=== PATIENT | male | born 1965 | race Caucasian/White ===

== ENCOUNTER 2017-04-03 08:46 | Emergency (ER) | payer BC ==
[2017-04-03 09:44] VITALS: BP 135/87
--- NOTE | 2017-04-03 10:01 | UC ---
Laceration HPI - HPI Summary HPI Summary: 51 yo male 19-20 hours s/p laceration to his left thumb occurred on a can lid he is right handed pretty sure his Td is UTP - History Of Current Complaint Chief Complaint: UCLaceration Stated Complaint: LEFT THUMB LAC Time Seen by Provider: 04/03/17 09:51 Hx Obtained From: Patient, Family/Yeast Pusher - mom Laceration Location: Finger Mechanism Of Injury: Sharp Trauma Onset/Duration: Sudden Onset Severity: Mild Pain Intensity: 2 Pain Scale Used: 0-10 Numeric Aggravating Factors: Other: - touch - Allergies/Home Medications Allergies/Adverse Reactions: Allergies Allergy/AdvReac Type Severity Reaction Status Date / Time No Known Allergies Allergy Verified 04/03/17 09:36 Home Medications: Home Medications Oxcarbazepine [Trileptal 600 MG tab] 600 mg BID 04/03/17 [History Confirmed ] lamoTRIgine TAB(*) [Lamictal TAB(*)] 50 mg DAILY 04/03/17 [History Confirmed ] PMH/Surg Hx/FS Hx/Imm Hx Previously Healthy: Yes Neurological History: Seizures - Surgical History Surgical History: Yes Surgery Procedure, Year, and Place: TONSILS, APPENDIX - Family History Known Family History: Positive: Hypertension - Social History Alcohol Use: Occasionally Substance Use Type: None Smoking Status (MU): Never Smoked Tobacco - Immunization History Most Recent Influenza Vaccination: 2017 Review of Systems Constitutional: Negative Skin: Negative Eyes: Negative ENT: Negative Respiratory: Negative Cardiovascular: Negative Gastrointestinal: Negative Genitourinary: Negative Motor: Negative Neurovascular: Negative Musculoskeletal: Negative Neurological: Negative Psychological: Negative Is Patient Immunocompromised?: No All Other Systems Reviewed And Are Negative: Yes Physical Exam Triage Information Reviewed: Yes Appearance: Well-Appearing, No Pain Distress, Well-Nourished Vital Signs: Initial Vital Signs Temp 98.2 F 04/03/17 09:37 Pulse 93 04/03/17 09:37 Resp 16 04/03/17 09:37 BP 135/87 04/03/17 09:37 Pulse Ox 96 04/03/17 09:37 Vital Signs Reviewed: Yes Eyes: Positive: Conjunctiva Clear ENT: Positive: Hearing grossly normal. Negative: Nasal congestion, Nasal drainage, Trismus, Muffled voice, Hoarse voice Neck: Positive: Supple Respiratory: Positive: Lungs clear, Normal breath sounds, No respiratory distress, No accessory muscle use Cardiovascular: Positive: RRR, No Murmur Musculoskeletal: Positive: ROM Intact, No Edema Neurological: Positive: Alert Psychological Exam: Normal Skin Exam: Other - laceration to left thumb Laceration Course/Dx - Course/Dx Course Of Treatment: I explained that we could not repair his laceration due to the time since the injury. He understands that he should get follow by his PMD to check for infection and access healing - Differential Dx - Laceration/Wound Provider Diagnoses: left thumb laceration- not sutured Discharge - Discharge Plan Condition: Stable Disposition: HOME Prescriptions: Cephalexin CAP* [Keflex CAP*] 500 mg PO QID #12 cap Patient Education Materials: Laceration Without Closure (ED) Referrals: Non Staff,Doctor [Primary Care Provider] - Additional Instructions: keep current dressing on for about 24 hours then gently clean twice daily with soap and water air dry or gently dry apply thin film of antibiotic oint (I like aquaphor healing ointment or polysporin) keep covered at work until healed once it starts to heal you may keep it open to air periodically recheck for concerns of infection see your MD in 2-3 days Images Hands: 1 - 2.3 cm long 3 mm wide/3 mm deep. n/v intact, sensation intact
== END 2017-04-03 10:21 | disposition home or self-care (01) ==
LOC: UCCORT 08:46
DX: S61.012A Laceration without foreign body of left thumb without damage to nail, initial encounter (principal); W45.8XXA Other foreign body or object entering through skin, initial encounter; Y92.9 Unspecified place or not applicable
CPT/HCPCS: 99203; G0463